=== PATIENT | female | born 1980 | race Caucasian/White ===

== ENCOUNTER 2016-05-22 21:37 | Emergency (ER) | payer SELFPAY ==
[~2016-05-22] VITALS: Ht 160 cm; Wt 65.0 kg
[~2016-05-22 21:37] MED LIST: ASPI81CH37 CHEW; BACT800T5 PO; CEPH-460 PO; GABA300C5 PO; LISI40TA PO; SERO300T PO; VIST50CA PO; ZOLO100T PO
[2016-05-22 22:13] VITALS: BP 98/58; PULSE 66; RESP 16; TEMP 98.5; O2SAT 97
--- NOTE | 2016-05-23 02:32 | PD ---
HPI . Altered level of consciousness Chief Complaint: Head Injury Time Seen by Provider: 02:12 Travel History International Travel<30 days: No Contact w/Intl Traveler<30days: No Traveled to known affect area: No History of Present Illness HPI [place]. [facility] was subsequently called and she was brought to the emergency department. The patient has been in the ambulance pain for a couple of hours and has been receiving frequent neuro checks. No neurological deficit has been noted. The patient is not really able to tell us what happened to her tonight. PFSH Past Medical History Anxiety: Yes Depression: Yes Hypertension: Yes Psychiatric: Yes Immunizations Current: Yes Tetanus Vaccination: Unknown Influenza Vaccination: No ?: Unknown Social History Alcohol Use: Yes (daily) Tobacco Use: Yes Substance Use: Yes Allergies-Medications (Allergen,Severity, Reaction): Coded Allergies: No Known Allergies (Unverified , 05/22/16) Reported Meds & Prescriptions Reported Meds & Active Scripts Active Keflex (Cephalexin) 500 Mg Cap 500 Mg PO Q6H 10 Days Bactrim DS (Sulfamethoxazole-Trimethoprim) 800-160 Mg Tab 1 Tab PO BID Reported Gabapentin 300 Mg Cap 300 Mg PO TID Seroquel (Quetiapine Fumarate) 300 Mg Tab 300 Mg PO HS Aspirin Low Dose (Aspirin) 81 Mg Chew 81 Mg CHEW DAILY Lisinopril 40 Mg Tab 40 Mg PO DAILY Zoloft (Sertraline HCl) 100 Mg Tab 100 Mg PO BID Vistaril (Hydroxyzine Pamoate) 50 Mg Cap 100 Mg PO HS Review of Systems ROS Limitations: Altered Mental Status Except as stated in HPI: all other systems reviewed are Neg Physical Exam Narrative GENERAL: This is a disheveled appearing woman who appears intoxicated. SKIN: Warm and dry. HEAD: Atraumatic. Normocephalic. EYES: Pupils equal and round. ENT: No nasal bleeding or discharge. Mucous membranes pink and moist. NECK: Trachea midline. Neck is supple. CARDIOVASCULAR: Regular rate and rhythm. Heart sounds are normal. RESPIRATORY: No accessory muscle use. Lungs are clear. GASTROINTESTINAL: Abdomen soft, non-tender, nondistended. MUSCULOSKELETAL: No obvious deformities. No edema. NEUROLOGICAL: Sleepy but arousable. Moving all 4 extremities equally. PSYCHIATRIC: Appears intoxicated. Data Data Last Documented VS Vital Signs Date Time Temp Pulse Resp B/P Pulse Ox O2 Delivery O2 Flow Rate FiO2 05/22/16 22:13 98.5 66 16 98/58 97 Orders Complete Blood Count With Diff (05/23/16 02:19) Basic Metabolic Panel (Bmp) (05/23/16 02:19) Drug Screen, Random Urine (05/23/16 02:19) Ed Urine Pregnancytest Poc (05/23/16 02:19) Alcohol (Ethanol) (05/23/16 02:19) Ct Brain W/O Iv Contrast(Rout) (05/23/16 02:19) Creatine Kinase (Cpk) (05/23/16 02:19) Cath For Specimen (05/23/16 02:32) MDM Medical Decision Making Medical Screen Exam Complete: Yes Emergency Medical Condition: Yes Differential Diagnosis Differential diagnosis of altered mental status includes but is not limited to infection, electrolyte abnormality, neurological event, intoxication Narrative Course Patient [place] us [place] [facility] [place] She is probably intoxicated. We will evaluate her for possible closed head injury or rhabdomyolysis. CT head is negative. The nurses are telling me that they are unable to obtain IV access/blood. The patient has been here long enough now where we can pretty safely say that she is stable. The labs were canceled. Diagnosis Primary Impression: Substance abuse Disposition: DISCHARGE HOME Condition: Stable Shahida Rosa MD May 23, 2016 02:32
--- NOTE | 2016-05-23 03:50 | RADRPT ---
EXAM DATE/TIME: 05/23/2016 03:41 [facility] COMPARISON: No previous studies available for comparison. INDICATIONS : Found passed out. Currently confused. RADIATION DOSE: 37.66 CTDIvol (mGy) MEDICAL HISTORY : None SURGICAL HISTORY : None. ENCOUNTER: Initial ACUITY: 1 day PAIN SCALE: 0/10 LOCATION: cranial TECHNIQUE: Multiple contiguous axial images were obtained of the head. Using automated exposure control and adj ustment of the mA and/or kV according to patient size, radiation dose was kept as low as reasonably a chievable to obtain optimal diagnostic quality images. FINDINGS: CEREBRUM: The ventricles are normal for age. No evidence of midline shift, mass lesion, hemorrhage or acute in farction. No extra-axial fluid collections are seen. POSTERIOR FOSSA: The cerebellum and brainstem are intact. The 4th ventricle is midline. The cerebellopontine angle i s unremarkable. EXTRACRANIAL: The visualized portion of the orbits is intact. SKULL: The calvaria is intact. No evidence of skull fracture. CONCLUSION: Normal examination. Talon Trinh MD on May 23, 2016 at 3:47 Board Certified Radiologist. This report was verified electronically.
[2016-05-23 05:46] VITALS: BP 96/58
[2016-05-23 08:52] VITALS: BP 118/81; PULSE 71; RESP 16; O2SAT 98
== END 2016-05-23 09:02 | disposition home or self-care (01) ==
LOC: NEPC 21:37
DX: F19.10 Other psychoactive substance abuse, uncomplicated (principal); R41.82 Altered mental status, unspecified; I10 Essential (primary) hypertension; Z72.0 Tobacco use; Z86.59 Personal history of other mental and behavioral disorders
CPT/HCPCS: 70450; 84703

== ENCOUNTER 2016-07-22 21:20 | Emergency (ER) | payer SELFPAY ==
[~2016-07-22] VITALS: Ht 165.1 cm; Wt 62.0 kg
[2016-07-22 21:21] VITALS: BP 101/68; PULSE 75; RESP 18; TEMP 97.7; O2SAT 98
[2016-07-23] MEDS ORDERED: ceFAZolin 2 GM PREMIX 50 ML IV ONE (01:00)
[2016-07-23] MEDS ORDERED: SODIUM CHLOR 0.9% 1000 ML INJ 1,000 ML IV ONE (01:00)
[2016-07-23 01:44] LABS: AUTOMATED NEUTROPHIL # 3.6 TH/MM3 (1.8-7.7); BASOPHIL # 0.1 TH/MM3 (0-0.2); BASOPHIL % 0.9 % (0.0-2.0); EOSINOPHIL # 0.3 TH/MM3 (0-0.4); HEMATOCRIT 40.8 % (35.0-46.0); HEMO FLAGS DIFF FINAL; LYMPH % 39.5 % (9.0-44.0); LYMPHOCYTE # 2.9 TH/MM3 (1.0-4.8); MEAN CELL VOLUME 92.4 FL (80.0-100.0); MEAN CORPUSCULAR HEMOGLOBIN 31.1 PG (27.0-34.0); MEAN CORPUSCULAR HGB CONC 33.7 % (32.0-36.0); MONO % 5.9 % (0.0-8.0); NEUT % 49.7 % (16.0-70.0); PLATELET COUNT 303 TH/MM3 (150-450); RED BLOOD COUNT 4.41 MIL/MM3 (4.00-5.30); RED CELL DISTRIBUTION WIDTH 12.7 % (11.6-17.2); WHITE BLOOD COUNT 7.2 TH/MM3 (4.0-11.0)
[2016-07-23] MEDS ORDERED: KETOROLAC TROMETHAMINE 30 MG/ML (IVP) VIAL IV PUSH ONE (02:00)
[2016-07-23] MEDS ORDERED: CLINDAMYCIN INJ 900 MG in SODIUM CHLORIDE 0.9% INJ 100 ML IV ONE (02:00)
[2016-07-23 02:07] LABS: ALKALINE PHOSPHATASE 68 U/L (45-117); TOTAL BILIRUBIN ADULT 0.2 MG/DL (0.2-1.0)
[2016-07-23 02:10] LABS: ALT (GPT) 115 U/L (10-53); ANION GAP 9 MEQ/L (5-15); AST (GOT) 87 U/L (15-37); BICARBONATE 26.7 MEQ/L (21.0-32.0); BLOOD UREA NITROGEN 7 MG/DL (7-18); CHLORIDE 107 MEQ/L (98-107); GLOMERULAR FILTRATION RATE 112 ML/MIN (>89); SODIUM (NA) 143 MEQ/L (136-145)
[2016-07-23 02:11] LABS: POTASSIUM 4.1 MEQ/L (3.5-5.1)
[2016-07-23] MEDS ORDERED: CLIN1CAP6 PO (02:24)
[2016-07-23] MEDS ORDERED: CEPH-460 PO (02:25)
--- NOTE | 2016-07-23 02:25 | PD ---
HPI Chief Complaint: Skin Problem Time Seen by Provider: 00:53 Travel History International Travel<30 days: No Contact w/Intl Traveler<30days: No Traveled to known affect area: No History of Present Illness HPI The patient is a 36 year old female who presents to the [facility] emergency department with a history of noting an infection to the medial aspect of the right breast that began a week ago. Today 3 days ago became worse and began to come to a head. She reports that it began to drain yesterday. The drainage is a yellow drainage. The patient reports that she has a history of prior skin infections. She reports that she last used IV drugs year ago. The patient reports that she has been taking Tylenol for pain. She reports that she 's had a subjective fever for the last 2 days. She reports that she's had chills. She denies having any nausea or vomiting. She reports that she has had some loose stools today. The patient denies any recent cough, congestion, neck pain, chest pain, shortness of breath, abdominal pain, vomiting, diarrhea, urinary symptoms, or neurologic symptoms. The patient's last menstrual cycle was July 22, 2016. [facility] Past Medical History Narrative Medical Patient's past medical history is significant for a thrombophilia with prior history of blood clot related to PICC line placement a year ago. She reports that she is supposed to be on Eliquis, however she is not able to afford it. 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 The patient has a history of anxiety and depression, hypertension. Anxiety: Yes Depression: Yes Hypertension: Yes Psychiatric: Yes Immunizations Current: Yes ?: Unknown LMP: 07/22/16 Past Surgical History Narrative Surgical The patient's past surgical history is significant for bilateral wrist surgeries related to cellulitis. Surgical History: No Previous Surgery Social History Alcohol Use: Yes (daily) Tobacco Use: Yes (1/2ppd ) Substance Use: Yes Allergies-Medications (Allergen,Severity, Reaction): Coded Allergies: No Known Allergies (Unverified , 07/22/16) Reported Meds & Prescriptions Reported Meds & Active Scripts Active Keflex (Cephalexin) 500 Mg Cap 500 Mg PO Q6H 10 Days Bactrim DS (Sulfamethoxazole-Trimethoprim) 800-160 Mg Tab 1 Tab PO BID Reported Gabapentin 300 Mg Cap 300 Mg PO TID Seroquel (Quetiapine Fumarate) 300 Mg Tab 300 Mg PO HS Aspirin Low Dose (Aspirin) 81 Mg Chew 81 Mg CHEW DAILY Lisinopril 40 Mg Tab 40 Mg PO DAILY Zoloft (Sertraline HCl) 100 Mg Tab 100 Mg PO BID Vistaril (Hydroxyzine Pamoate) 50 Mg Cap 100 Mg PO HS Review of Systems Except as stated in HPI: all other systems reviewed are Neg General / Constitutional: Positive: Fever, Chills Eyes: No: Visual changes HENT: No: Headaches Cardiovascular: No: Chest Pain or Discomfort Respiratory: No: Shortness of Breath Gastrointestinal: Positive: Changes in Bowel Habits (loose stools today), No: Nausea, Vomiting, Diarrhea, Abdominal Pain, Indigestion, Loss of Appetite Genitourinary: No: Dysuria Musculoskeletal: No: Pain Skin: No Rash Neurologic: No: Weakness, Focal Abnormalities, Change in Mentation, Sensory Disturbance Psychiatric: No: Depression Endocrine: No: Polydipsia Hematologic/Lymphatic: No: Easy Bruising Physical Exam Narrative General: The patient is a well-developed well-nourished female in no acute distress. Head and Neck exam: Head is normocephalic atraumatic. Eyes: EOMI, pupils are equal round and reactive to light. Nose: Midline septum with pink mucous membranes Mouth: Dentition unremarkable. Moist mucus membranes. Posterior oropharynx is not erythematous. No tonsillar hypertrophy. Uvula midline. Airway patent. Neck: No palpable lymphadenopathy. No nuchal rigidity. No thyromegaly. Cardiovascular: Regular rate and rhythm without murmurs, gallops, or rubs. Lungs: Clear to auscultation bilaterally. No wheezes, rhonchi, or rales. Abdomen: Soft, without tenderness to palpation in all 4 quadrants of the abdomen. No guarding, rebound, or rigidity. Normal bowel sounds are audible. No tenderness on palpation of McBurney's point. Extremities: No clubbing, cyanosis, or edema. 2+ pulses in all 4 extremities. The patient has multiple areas of track weldon on her extremities and her neck. Back: No spinous process tenderness to palpation. No costovertebral angle tenderness to palpation. Neurologic Exam: Grossly nonfocal. Skin Exam: No rash noted. The patient on examination of the area of interest, the chest, medial aspect of the right breast is noted to have an approximately 7 x 4 area of erythema with central induration, no fluctuance. There is an opening in the center which expresses a yellow discharge that was cultured. Data Data Last Documented VS Vital Signs Date Time Temp Pulse Resp B/P Pulse Ox O2 Delivery O2 Flow Rate FiO2 07/23/16 00:51 18 07/22/16 21:21 97.7 75 101/68 98 Orders Complete Blood Count With Diff (07/23/16 00:54) Comprehensive Metabolic Panel (07/23/16 00:54) Blood Culture (07/23/16 00:54) C-Reactive Protein (Crp) (07/23/16 00:54) Wound Culture And Gram Stain (07/23/16 00:54) Iv Access Insert/Monitor (07/23/16 00:54) Ecg Monitoring (07/23/16 00:54) Oximetry (07/23/16 00:54) Ed Urine Pregnancytest Poc (07/23/16 00:54) Lactic Acid Sepsis Protocol (07/23/16 00:54) Cefazolin 2 Gm Premix (Ancef 2 Gm Premix (07/23/16 01:00) Sodium Chlor 0.9% 1000 Ml Inj (Ns 1000 M (07/23/16 01:00) Ketorolac Inj (Toradol Inj) (07/23/16 02:00) Clindamycin Inj (Cleocin Inj) (07/23/16 02:00) Labs Laboratory Tests Test 07/23/16 01:20 White Blood Count 7.2 TH/MM3 Red Blood Count 4.41 MIL/MM3 Hemoglobin 13.7 GM/DL Hematocrit 40.8 % Mean Corpuscular Volume 92.4 FL Mean Corpuscular Hemoglobin 31.1 PG Mean Corpuscular Hemoglobin 33.7 % Concent Red Cell Distribution Width 12.7 % Platelet Count 303 TH/MM3 Mean Platelet Volume 10.2 FL Neutrophils (%) (Auto) 49.7 % Lymphocytes (%) (Auto) 39.5 % Monocytes (%) (Auto) 5.9 % Eosinophils (%) (Auto) 4.0 % Basophils (%) (Auto) 0.9 % Neutrophils # (Auto) 3.6 TH/MM3 Lymphocytes # (Auto) 2.9 TH/MM3 Monocytes # (Auto) 0.4 TH/MM3 Eosinophils # (Auto) 0.3 TH/MM3 Basophils # (Auto) 0.1 TH/MM3 CBC Comment DIFF FINAL Differential Comment Sodium Level 143 MEQ/L Potassium Level 4.1 MEQ/L Chloride Level 107 MEQ/L Carbon Dioxide Level 26.7 MEQ/L Anion Gap 9 MEQ/L Blood Urea Nitrogen 7 MG/DL Creatinine 0.60 MG/DL Estimat Glomerular Filtration 112 ML/MIN Rate Random Glucose 82 MG/DL Lactic Acid Level 1.7 mmol/L Calcium Level 8.7 MG/DL Total Bilirubin 0.2 MG/DL Aspartate Amino Transf 87 U/L (AST/SGOT) Alanine Aminotransferase 115 U/L (ALT/SGPT) Alkaline Phosphatase 68 U/L C-Reactive Protein LESS THAN 0.29 MG/DL Total Protein 7.3 GM/DL Albumin 3.1 GM/DL MDM Medical Decision Making Medical Screen Exam Complete: Yes Emergency Medical Condition: Yes Medical Record Reviewed: Yes Differential Diagnosis Cellulitis, versus draining abscess, versus sepsis Narrative Course During the course of the patients emergency department visit, the patients history, examination, and differential diagnosis were reviewed with the patient. The patient had IV access attempted to be obtained, however access was not able to be obtained by the nursing staff, therefore an external jugular IV was placed in the right side by me. This is a 20-gauge Angiocath that was placed. This was done with one sick without any difficulty. The line flushed well. The patient was provided Toradol 15 mg IV 1 for pain, normal saline 1 L IV fluid bolus was provided. The patient was given Ancef 2 g IV, clindamycin 600 mg IV. The Patients laboratory studies were reviewed and remarkable for a CBC that is within normal limits. CMP is remarkable for an AST of 87, ALT 1:15, C-reactive protein is less than 0.29, lactic acid 1.7. The patient has no signs of sepsis on her laboratory studies, lactic acid is within normal limits, vital signs are all within normal limits. The patient will be given a prescription for antibiotics with instructions to follow back up in the emergency Department for a wound recheck in 24-48 hours. She is instructed to come back sooner if the area of redness is increasing or she develops vomiting and is unable to keep down the antibiotic. The patient's LFTs being slightly elevated, I explained this to the patient and recommended that she follow up for hepatitis testing again. Her last hepatitis test was reportedly negative 6 months ago. The patient is resting comfortably and feels better, is alert and in no distress. The patients results and examination findings The repeat examination is unremarkable and benign. The history, exam, diagnostic testing, and current condition do not suggest any significant pathology to warrant further testing, continued ED treatment, admission, or surgical evaluation at this point. The vital signs have been stable. The patient does not have uncontrollable pain, intractable vomiting, or other significant symptoms. The patient's condition is stable and appropriate for discharge. The patient will pursue further outpatient evaluation with a primary care physician or other designated or consulting physician as indicated in the discharge instructions. The patient expressed understanding and was agreeable with this plan. Diagnosis Primary Impression: Cellulitis of chest wall Additional Impressions: Abscess Elevated liver enzymes Referrals: [facility] Patient Assistance Program Additional Instructions: Return back to the emergency Department for a wound recheck and 24-48 hours. The patient is instructed to come back sooner if the area of redness is increasing or she develops vomiting and is unable to keep down the antibiotic. The patient's LFTs being slightly elevated, I explained this to the patient and recommended that she follow up for hepatitis testing again. Her last hepatitis test was reportedly negative 6 months ago. Med/Other Pt SpecificInfo: Prescription(s) given Scripts Cephalexin (Keflex)500 Mg [id number] Mg PO Q6H 10 Days Ref 0 Prov:Gissell Nelson MD 07/23/16 Clindamycin 300 Mg [id number] Mg PO Q6H 10 Days Ref 0 Prov:Gissell Nelson MD 07/23/16 Disposition: 01 DISCHARGE HOME Condition: Stable Gissell Nelson MD Jul 23, 2016 02:25
== END 2016-07-23 04:55 | disposition home or self-care (01) ==
LOC: NEPC 21:20
DX: L03.313 Cellulitis of chest wall (principal); L02.213 Cutaneous abscess of chest wall; B95.62 Methicillin resistant Staphylococcus aureus infection as the cause of diseases classified elsewhere; R74.8 Abnormal levels of other serum enzymes; I10 Essential (primary) hypertension; R50.9 Fever, unspecified; F17.210 Nicotine dependence, cigarettes, uncomplicated
CPT/HCPCS: 80053; 83605; 84703; 85025; 86140; 86403; 87040; 87070; 87186; 96365; 96375; 99284; J0690; J1885; J7030